=== PATIENT | female | born 1995 | race Caucasian/White ===

== ENCOUNTER 2016-12-15 21:33 | Emergency (ER) | payer BC ==
[2016-12-15 21:38] VITALS: TEMP 97.9
--- NOTE | 2016-12-15 22:22 | EDPHY ---
H & P Stated Complaint: right flank and abd pain, vomiting Source: Patient Exam Limitations: No limitations - Personal History LMP (Females 10-55): 15-21 Days Ago Current Tetanus Diphtheria and Acellular Pertussis (TDAP): Yes - Medical/Surgical History Hx Asthma: No Hx Chronic Respiratory Disease: No Hx Diabetes: No Hx Cardiac Disease: No Hx Renal Disease: No Hx Cirrhosis: No Hx Alcoholism: No Hx HIV/AIDS: No Hx Splenectomy or Spleen Trauma: No Other PMH: ADD, anxiety. polyps colon - Social History Smoking Status: Light smoker Time Seen by Provider: 12/15/16 22:18 HPI/ROS: CHIEF COMPLAINT: Right flank pain, right upper quadrant pain and vomiting HISTORY OF PRESENT ILLNESS: Patient presents to the ED with right flank pain, right upper quadrant pain and vomiting for the past day. The patient does report antecedent dysuria and frequency. The patient does report a history of fairly significant alcohol use. She last drank alcohol in the evening. The patient denies prior history of abdominal surgery. The patient denies history of pancreatitis or other acute medical problems. Patient reports her pain is moderate in nature. It is primarily in her right upper quadrant with radiation to her flank. She denies chest pain or shortness of breath. She denies additional complaints. REVIEW OF SYSTEMS: A comprehensive 10 point review of systems is otherwise negative aside from elements mentioned in the history of present illness. (Alvaro Fernandez) - Physical Exam Exam: General Appearance: Alert, no distress Eyes: Pupils equal and round no pallor or injection ENT, Mouth: Mucous membranes moist Respiratory: There are no retractions, lungs are clear to auscultation Cardiovascular: Regular rate and rhythm Gastrointestinal: Minimal tenderness to palpation in the right upper quadrant, mild right CVA tenderness, no right lower quadrant tenderness appreciated Neurological: A&O, normal motor function, normal sensory exam, normal cranial nerves Skin: Warm and dry, no rashes Musculoskeletal: Neck is supple nontender Extremities: symmetrical, full range of motion (Alvaro Fernandez) Constitutional: Initial Vital Signs Temperature (C) 36.6 C 12/15/16 21:36 Heart Rate 90 12/15/16 21:36 Respiratory Rate 20 12/15/16 21:36 Blood Pressure 128/94 H 12/15/16 21:36 O2 Sat (%) 96 12/15/16 21:36 O2 Delivery Mode Room Air Allergies/Adverse Reactions: No Known Allergies Allergy (Unverified 12/15/16 21:35) Home Medications: Medication Instructions Recorded Cephalexin [Keflex (*)] 500 mg PO Q6H #28 cap 12/15/16 Ondansetron Odt [Zofran Odt 4 mg 4 mg PO Q4 PRN #10 tab 12/15/16 (*)] Medical Decision Making Procedures: Bedside limited abdominal Ultrasound- performed and interpreted by me. Indication: Elevated bilirubin with right-sided flank pain Findings: No gallstones, no pericholecystic fluid, no gallbladder wall thickening, no sonographic Melchor's Impression: No sonographic evidence of cholecystitis or cholelithiasis. ( Gabrielle Stockton) ED Course/Re-evaluation: The patient presents to the ED with right upper quadrant pain, mild flank pain and dysuria for the past several days. The patient does have a history of urinary tract infections in the past. The patient has no right lower quadrant tenderness. Her vital signs are stable and she is in no acute distress. The patient had an IV established. She received a L of normal saline, IV morphine and Zofran. Urinalysis and laboratory studies have been ordered. The patient will be turned over to Dr. Gabrielle Stockton at shift change. (Alvaro Fernandez) Other Provider: 11:20 p.m.- I received sign-out on this patient from Dr. Fernandez. I have evaluated her lab test results in the reveal a mild leukocytosis, and elevated bilirubin. I have reexamined her and she does have right flank tenderness but does not have tenderness in her right upper or lower quadrants at this time. This makes my suspicion for cholecystitis low. However given her initial presenting complaints an elevated bilirubin bedside ultrasound was performed which showed no signs of cholecystitis. I have explained this to her. She will receive a dose of ceftriaxone in be discharged with antibiotics for presumed pyelonephritis. (Gabrielle Stockton) - Data Points Laboratory Results: Laboratory Results 12/15/16 22:29 12/15/16 22:29 12/15/16 12/15/16 12/15/16 22:29 22:29 22:29 WBC 11.41 10^3/uL H 10^3/uL (3.80-9.50) RBC 4.37 10^6/uL 10^6/uL (4.18-5.33) Hgb 14.6 g/dL g/dL (12.6-16.3) Hct 43.2 % % (38.0-47.0) MCV 98.9 fL fL (81.5-99.8) MCH 33.4 pg pg (27.9-34.1) MCHC 33.8 g/dL g/dL (32.4-36.7) RDW 11.8 % % (11.5-15.2) Plt Count 336 10^3/uL 10^3/uL (150-400) MPV 9.2 fL fL (8.7-11.7) Neut % (Auto) 78.6 % H % (39.3-74.2) Lymph % (Auto) 15.0 % % (15.0-45.0) Waller % (Auto) 5.0 % % (4.5-13.0) Eos % (Auto) 0.7 % % (0.6-7.6) Baso % (Auto) 0.4 % % (0.3-1.7) Nucleat RBC Rel Count 0.0 % % (0.0-0.2) Absolute Neuts (auto) 8.98 10^3/uL H 10^3/uL (1.70-6.50) Absolute Lymphs (auto) 1.71 10^3/uL 10^3/uL (1.00-3.00) Absolute Monos (auto) 0.57 10^3/uL 10^3/uL (0.30-0.80) Absolute Eos (auto) 0.08 10^3/uL 10^3/uL (0.03-0.40) Absolute Basos (auto) 0.04 10^3/uL 10^3/uL (0.02-0.10) Absolute Nucleated RBC 0.00 10^3/uL 10^3/uL (0-0.01) Immature Gran % 0.3 % % (0.0-1.1) Immature Gran # 0.03 10^3/uL 10^3/uL (0.00-0.10) Sodium 133 mEq/L L mEq/L (134-144) Potassium 4.1 mEq/L mEq/L (3.5-5.2) Chloride 96 mEq/L L mEq/L (97-110) Carbon Dioxide 24 mEq/l mEq/l (22-31) Anion Gap 13 mEq/L mEq/L (8-16) BUN 12 mg/dL mg/dL (7-23) Creatinine 0.9 mg/dL mg/dL (0.6-1.0) Estimated GFR > 60 Glucose 77 mg/dL mg/dL (70-100) Calcium 10.2 mg/dL mg/dL (8.5-10.4) Total Bilirubin 2.4 mg/dL H mg/dL (0.1-1.4) Conjugated Bilirubin 0.4 mg/dL mg/dL (0.0-0.5) Unconjugated Bilirubin 2.0 mg/dL H mg/dL (0.0-1.1) AST 35 IU/L IU/L (14-46) ALT 38 IU/L IU/L (9-52) Alkaline Phosphatase 87 IU/L IU/L (38-126) Total Protein 8.1 g/dL g/dL (6.3-8.2) Albumin 4.9 g/dL g/dL (3.5-5.0) Lipase 80.0 IU/L IU/L (23-300) Beta HCG, Qual NEGATIVE Urine Color Urine Appearance Urine pH Ur Specific [place] Urine Protein Urine Ketones Urine Blood Urine Nitrate Urine Bilirubin Urine Urobilinogen Ur Leukocyte Esterase Urine RBC Urine WBC Ur Epithelial Cells Urine Bacteria Urine Mucus Urine Yeast Ur Culture Indicated? Urine Glucose 12/15/16 22:23 WBC RBC Hgb Hct MCV MCH MCHC RDW Plt Count MPV Neut % (Auto) Lymph % (Auto) Waller % (Auto) Eos % (Auto) Baso % (Auto) Nucleat RBC Rel Count Absolute Neuts (auto) Absolute Lymphs (auto) Absolute Monos (auto) Absolute Eos (auto) Absolute Basos (auto) Absolute Nucleated RBC Immature Gran % Immature Gran # Sodium Potassium Chloride Carbon Dioxide Anion Gap BUN Creatinine Estimated GFR Glucose Calcium Total Bilirubin Conjugated Bilirubin Unconjugated Bilirubin AST ALT Alkaline Phosphatase Total Protein Albumin Lipase Beta HCG, Qual Urine Color YELLOW Urine Appearance MODERATELY TURBID Urine pH 5.0 (5.0-7.5) Ur Specific [place] 1.014 (1.002-1.030) Urine Protein 2+ H (NEGATIVE) Urine Ketones 1+ H (NEGATIVE) Urine Blood 2+ H (NEGATIVE) Urine Nitrate POSITIVE H (NEGATIVE) Urine Bilirubin NEGATIVE (NEGATIVE) Urine Urobilinogen NEGATIVE EU EU (0.2-1.0) Ur Leukocyte Esterase 2+ H (NEGATIVE) Urine RBC 25-50 /hpf H /hpf (0-3) Urine WBC 50-182 /hpf H /hpf (0-3) Ur Epithelial Cells TRACE /lpf /lpf (NONE-1+) Urine Bacteria 1+ /hpf H /hpf (NONE SEEN) Urine Mucus TRACE /lpf /lpf (NONE-1+) Urine Yeast PRESENT /hpf /hpf (NONE SEEN) Ur Culture Indicated? INDICATED H (NI) Urine Glucose NEGATIVE (NEGATIVE) Medications Given: Discontinued Medications Sodium Chloride (Ns) 1,000 mls @ 0 mls/hr IV ONCE ONE PRN Reason: Wide Open Stop: 12/15/16 22:43 Last Admin: 12/15/16 22:50 Dose: 1,000 mls Ceftriaxone Sodium/Dextrose (Rocephin 1 Gm (Premix)) 50 mls @ 100 mls/hr IV EDNOW ONE PRN Reason: Protocol Stop: 12/15/16 23:21 Last Admin: 12/15/16 23:29 Dose: 50 mls Morphine Sulfate (Morphine) 4 mg IVP EDNOW ONE Stop: 12/15/16 22:44 Last Admin: 12/15/16 22:52 Dose: 4 mg Ondansetron HCl (Zofran) 4 mg IVP EDNOW ONE Stop: 12/15/16 22:44 Last Admin: 12/15/16 22:50 Dose: 4 mg Ondansetron HCl (Zofran Odt 4 Mg Prepack#2) 1 btl TAKEHOME EDNOW ONE Stop: 12/15/16 23:47 Last Admin: 12/15/16 23:48 Dose: 1 btl Departure - Departure Disposition: Home, Routine, Self-Care Clinical Impression: Acute pyelonephritis Condition: Good Instructions: Ondansetron (By mouth), Kidney Infection (ED) Additional Instructions: Please return to the emergency room if your worse in any way. Otherwise you can follow up with your regular doctor in 1-2 days. Make sure to drink plenty of fluids. Referrals: NONE *PRIMARY CARE P,. [Primary Care Provider] - As per Instructions Prescriptions: Cephalexin [Keflex (*)] 500 mg PO Q6H #28 cap Ondansetron Odt [Zofran Odt 4 mg (*)] 4 mg PO Q4 PRN #10 tab PRN Reason: Nausea/Vomiting, Can'T Take Po
[2016-12-15 22:41] LABS: % IMMATURE GRANULYOCYTES 0.3 % (0.0-1.1); ABSOLUTE IMMATURE GRANULOCYTES 0.03 10^3/uL (0.00-0.10); ADD DIFF? NO; ADD MORPH? NO; ADD SCAN? NO; ATYPICAL LYMPHOCYTE FLAG 10 (0-99); FRAGMENT RBC FLAG 0 (0-99); HEMATOCRIT 43.2 % (38.0-47.0); HEMOGLOBIN 14.6 g/dL (12.6-16.3); LEFT SHIFT FLG 0 (0-99); LIPEMIA HEMOLYSIS FLAG 90 (0-99); MEAN CELL HEMOGLOBIN 33.4 pg (27.9-34.1); MEAN CELL HEMOGLOBIN CONCENTR. 33.8 g/dL (32.4-36.7); MEAN CELL VOLUME 98.9 fL (81.5-99.8); MEAN PLATELET VOLUME 9.2 fL (8.7-11.7); PLATELET CLUMPS FLAG 0 (0-99); PLATELET COUNT 336 10^3/uL (150-400); RED BLOOD CELL COUNT 4.37 10^6/uL (4.18-5.33); RED CELL DISTRIBUTION WIDTH 11.8 % (11.5-15.2)
[2016-12-15] MEDS ORDERED: NS 1,000 ML IV ONE (22:42)
[2016-12-15] MEDS ORDERED: ONDANSETRON 4 MG/2 ML VIAL IVP ONE (22:43)
[2016-12-15 22:49] LABS: COLOR YELLOW; LEUKOCYTE ESTERASE,URINE 2+ (NEGATIVE); NITRITE,URINE POSITIVE (NEGATIVE)
[2016-12-15 22:53] LABS: BACTERIA 1+ /hpf (NONE SEEN); MUCUS TRACE /lpf (NONE-1+); RBC,URINE 25-50 /hpf (0-3); WBC,URINE 50-182 /hpf (0-3); YEAST PRESENT /hpf (NONE SEEN)
[2016-12-15 23:05] LABS: ALANINE AMINOTRANSFERASE 38 IU/L (9-52); ALBUMIN 4.9 g/dL (3.5-5.0); ALKALINE PHOSPHATASE 87 IU/L (38-126); ANION GAP 13 mEq/L (8-16); ASPARTATE AMINOTRANSFERASE 35 IU/L (14-46); BILIRUBIN,TOTAL 2.4 mg/dL (0.1-1.4); BILIRUBIN-CONJUGATED 0.4 mg/dL (0.0-0.5); CALCIUM 10.2 mg/dL (8.5-10.4); CARBON DIOXIDE 24 mEq/l (22-31); CHLORIDE 96 mEq/L (97-110); CREATININE 0.9 mg/dL (0.6-1.0); GLOMERULAR FILTRATION RATE > 60; GLUCOSE 77 mg/dL (70-100); POTASSIUM 4.1 mEq/L (3.5-5.2); SODIUM 133 mEq/L (134-144); TOTAL PROTEIN 8.1 g/dL (6.3-8.2)
[2016-12-15] MEDS ORDERED: ONDANSETRON 4MG PREPACK#2 BTL TAKEHOME ONE (23:46)
[2016-12-15 23:58] VITALS: BP 133/79; PULSE 65; RESP 16; O2SAT 97
== END 2016-12-15 23:59 | disposition home or self-care (01) ==
DX: N10 Acute pyelonephritis (principal); F17.200 Nicotine dependence, unspecified, uncomplicated
CPT/HCPCS: 96365; J0696; J2405

== ENCOUNTER 2017-06-15 02:48 | Emergency (ER) | payer BC ==
--- NOTE | 2017-06-15 02:54 | EDPHY ---
H & P Source: Patient, Police - Medical/Surgical History Hx Asthma: No Hx Chronic Respiratory Disease: No Hx Diabetes: No Hx Cardiac Disease: No Hx Renal Disease: No Hx Cirrhosis: No Hx Alcoholism: No Hx HIV/AIDS: No Hx Splenectomy or Spleen Trauma: No Other PMH: ADD, anxiety. polyps colon - Social History Smoking Status: Light smoker HPI/ROS: HPI CHIEF COMPLAINT: M1 hold brought in by [employer]. Suicidal ideation. HISTORY OF PRESENT ILLNESS: This patient 21-year-old female she does have significant past medical history for bipolar disorder she does not take any medication. She presents emergency room highly intoxicated with alcohol. 911 was called and police were dispatched to a private residence with a dispatcher in the background could hear her yelling and going to kill myself. Her friend called 911. Upon arrival to the emergency room the patient is denying suicidal ideation or any plan for this. She denies wanting to hurt herself or anybody else. However she is highly intoxicated with alcohol. It is reported by police that she was screaming in the back on of the 911 call that she is going to kill herself. Multiple times. Friend called 911. Past Medical History: Bipolar disorder Past Surgical History: No recent surgery Social History: Denies drug use. Admits to alcohol she states she had 4 shots this evening. Family History: Noncontributory ROS REVIEW OF SYSTEMS: A comprehensive 10 point review of systems is otherwise negative aside from elements mentioned in the history of present illness. Exam Constitutional intoxicated alcohol, smells of alcohol, slurring speech, triage nursing summary reviewed, vital signs reviewed, awake/alert. Eyes normal conjunctivae and sclera, EOMI, PERRLA. HENT normal inspection, atraumatic, moist mucus membranes, no epistaxis, neck supple/ no meningismus, no raccoon eyes. Respiratory clear to auscultation bilaterally, normal breath sounds, no respiratory distress, no wheezing. Cardiovascular rate normal, regular rhythm, no murmur, no edema, distal pulses normal. Gastrointestinal soft, non-tender, no rebound, no guarding, normal bowel sounds, no distension, no pulsatile mass. Genitourinary no CVA tenderness. Musculoskeletal no midline vertebral tenderness, full range of motion, no calf swelling, no tenderness of extremities, no meningismus, good pulses, neurovascularly intact. Skin pink, warm, & dry, no rash, skin atraumatic. Neurologic awake, alert and oriented x 3, AAOx3, moves all 4 extremities equally, motor intact, sensory intact, CN II-XII intact, normal cerebellar, normal vision, slurring her speech Psychiatric denies to me suicidal ideation or homicidal ideation. Denies depression. Heme/Lymph/Immune no lymphadenopathy. Differential Diagnosis: Includes but is not limited to in a particular order: Bipolar disorder, acute alcohol intoxication, suicidal ideation, mood disorder, depression Medical Decision Making: Plan for this patient blood draw for medical clearance. Check alcohol level. She is on M1 hold by police. She will need evaluation after she is sober. Re-evaluation: 0507: Alcohol serum 433. No acute events overnight. Patient resting and sleeping. Patient signed over at 7:00 a.m. shift change to Dr. Salazar. (Arden Diallo) Constitutional: Initial Vital Signs Temperature (C) 36.5 C 06/15/17 02:52 Heart Rate 106 H 06/15/17 02:52 Respiratory Rate 18 06/15/17 02:52 Blood Pressure 139/92 H 06/15/17 02:52 O2 Sat (%) 94 06/15/17 02:52 O2 Delivery Mode Room Air Allergies/Adverse Reactions: No Known Allergies Allergy (Unverified 12/15/16 21:35) Home Medications: Medication Instructions Recorded NK [No Known Home Meds] 06/15/17 Medical Decision Making Other Provider: I assumed care of this patient from Dr. Salazar at change of shift, 3:00 p.m.. Patient's course was discussed with me by Yesica from [facility]. Patient has appropriately sobered. [facility] has performed there evaluation. Patient is no longer endorsing suicidal ideation. Patient's mother was also contacted. Plan was put in placed to discharge the patient. She no longer meets criteria for 72 hour mental health hold. Hold was lifted by Dr. Andrea. (Gissel Franco) - Data Points Laboratory Results: Laboratory Results 06/15/17 02:54 06/15/17 02:54 Departure - Departure Disposition: Home, Routine, Self-Care Clinical Impression: Bipolar disorder Alcoholic intoxication Qualifiers: Complication of substance-induced condition: uncomplicated Qualified Code(s): F10.920 - Alcohol use, unspecified with intoxication, uncomplicated Condition: Fair Instructions: Alcohol Intoxication (ED), Suicide Prevention for Adults (ED) Additional Instructions: Please follow up as directed with mental health. We strongly encourage you to stop drinking alcohol in excessive quantities. Referrals: Patient,NotPresent [Unknown] - As per Instructions
[2017-06-15 02:59] LABS: % IMMATURE GRANULYOCYTES 0.3 % (0.0-1.1); ABSOLUTE IMMATURE GRANULOCYTES 0.02 10^3/uL (0.00-0.10); ADD DIFF? NO; ADD MORPH? NO; ADD SCAN? NO; ATYPICAL LYMPHOCYTE FLAG 10 (0-99); FRAGMENT RBC FLAG 0 (0-99); HEMATOCRIT 42.3 % (38.0-47.0); HEMOGLOBIN 14.9 g/dL (12.6-16.3); LEFT SHIFT FLG 0 (0-99); LIPEMIA HEMOLYSIS FLAG 90 (0-99); MEAN CELL HEMOGLOBIN 33.7 pg (27.9-34.1); MEAN CELL HEMOGLOBIN CONCENTR. 35.2 g/dL (32.4-36.7); MEAN CELL VOLUME 95.7 fL (81.5-99.8); MEAN PLATELET VOLUME 8.9 fL (8.7-11.7); PLATELET CLUMPS FLAG 0 (0-99); PLATELET COUNT 359 10^3/uL (150-400); RED BLOOD CELL COUNT 4.42 10^6/uL (4.18-5.33); RED CELL DISTRIBUTION WIDTH 11.8 % (11.5-15.2)
[2017-06-15 03:15] LABS: ANION GAP 18 mEq/L (8-16); CALCIUM 9.9 mg/dL (8.5-10.4); CARBON DIOXIDE 23 mEq/l (22-31); CHLORIDE 106 mEq/L (97-110); CREATININE 0.8 mg/dL (0.6-1.0); GLOMERULAR FILTRATION RATE > 60; GLUCOSE 89 mg/dL (70-100); POTASSIUM 4.1 mEq/L (3.5-5.2); SALICYLATE < 1.0 mg/dL (2.0-20.0); SODIUM 147 mEq/L (134-144)
[2017-06-15 03:23] LABS: ETHANOL SERUM 433 mg/dL (0-10)
[2017-06-15 10:47] VITALS: RESP 18
[2017-06-15 18:12] VITALS: BP 117/80; PULSE 75; TEMP 98.2; O2SAT 97
== END 2017-06-15 18:21 | disposition home or self-care (01) ==
DX: F31.9 Bipolar disorder, unspecified (principal); F10.920 Alcohol use, unspecified with intoxication, uncomplicated; F17.200 Nicotine dependence, unspecified, uncomplicated
CPT/HCPCS: 80305; G0480

== ENCOUNTER → 2018-01-03 | Outpatient (CLI) | payer BC | LOC: BMCIMAGING 12:20 | PROVIDERS: ATTEND Family Medicine | DX: M25.572 Pain in left ankle and joints of left foot (principal) ==

== ENCOUNTER 2018-09-02 11:34 | Emergency (ER) | payer BC ==
--- NOTE | 2018-09-02 12:17 | EDPHY ---
H & P Stated Complaint: injured left "pinky" toe Source: Patient Exam Limitations: No limitations - Personal History LMP (Females 10-55): 8-14 Days Ago Current Tetanus/Diphtheria Vaccine: Yes Current Tetanus Diphtheria and Acellular Pertussis (TDAP): Yes - Medical/Surgical History Hx Asthma: No Hx Chronic Respiratory Disease: No Hx Diabetes: No Hx Cardiac Disease: No Hx Renal Disease: No Hx Cirrhosis: No Hx Alcoholism: No Hx HIV/AIDS: No Hx Splenectomy or Spleen Trauma: No Other PMH: ADD, anxiety. polyps colon - Social History Smoking Status: Light smoker Time Seen by Provider: 09/02/18 12:15 HPI/ROS: HPI: This is a 22-year-old female who presents with Chief Complaint: injured left "pinky" toe Location: Left pinky toe Quality: Injury Duration: Signs and Symptoms: No bleeding, no radiation, no numbness, no weakness, no tingling, no incontinence, no decreased range of motion, + swelling, + pain, no fever Timing: Acute Severity: 03/15 Context: Patient is a student at [employer] reports that she accidentally stubbed her left pinky toe on her couch prior to arrival. She reports that it felt constant, moderate, nonradiating pain. She reports that the area is bruise with decreased range of motion. Modifying Factors: She has not applied ice or taking [id number] pain medications Comment: ROS: A comprehensive 10 system review of systems is otherwise negative aside from elements mentioned in the history of present illness. MEDICAL/SURGICAL/SOCIAL HISTORY: Medical history: ADD, anxiety, polyps colon. LMP 1-2 weeks ago. Surgical history: Denies Social history: Light smoker. CONSTITUTIONAL: Well-developed, well-nourished, young adult female. awake and alert, no obvious distress HEENT: Atraumatic and normocephalic. NECK: supple EXTREMITIES: 2/2 pulses, strength 5/5, left little toe shows tenderness to palpation at the MCP joint with mild bruising; DIP/PIP/MCP flexion/extension intact with good light touch sensation. no deformities, no clubbing, no cyanosis or edema. NEUROLOGICAL: no focal neuro deficits. GCS 15. Light touch sensation intact. SKIN: Warm and dry, no erythema. no rash. Good capillary refill. (Jagruti,Terra) Constitutional: Initial Vital Signs Temperature (C) 36.8 C 09/02/18 11:56 Heart Rate 66 09/02/18 11:56 Respiratory Rate 16 09/02/18 11:56 Blood Pressure 114/80 09/02/18 11:56 O2 Sat (%) 97 09/02/18 11:56 O2 Delivery Mode Room Air Allergies/Adverse Reactions: No Known Allergies Allergy (Unverified 12/15/16 21:35) Home Medications: Medication Instructions Recorded Lexapro 09/02/18 Topamax 09/02/18 traZODone 09/02/18 Medical Decision Making Procedures: Procedure: Splint placement. Nestor tape and postop shoe was applied. After application of the splint I returned and re-examined the patient. The splint was adequately immobilizing the joint and distal to the splint the patient's circulation and sensation was intact. (Kathya Chand) ED Course/Re-evaluation: Left toe x-ray ordered and my read via PAC shows displaced 5th/little toe fracture Nestor tape and postop shoe applied Podiatry follow-up as needed No signs of neurovascular compromise/tenting of skin/compartment syndrome/ extremities and joints examined above and below area of concern and are neurovascularly intact. This patient was seen under the supervision of my secondary supervising physician. I evaluated care for this patient independently. Discussed this patient with Dr. Arvizu who did not see the patient. (Kathya Chand) The patient was evaluated and managed by the physician bilingual administrative assistant. I have reviewed this chart and I agree with the findings and plan of care as documented , as indicated by my signature. I am the secondary supervising physician. ( Autumn Arvizu) Differential Diagnosis: Differential diagnosis includes but is not limited to contusion, fracture, sprain, nerve injury, tendon injury. (Kathya Chand) Departure - Departure Disposition: Home, Routine, Self-Care Clinical Impression: Toe fracture, left Condition: Good Instructions: Toe Fracture (ED), Post Surgical Shoe (ED) Additional Instructions: Nestor-taped and wear the postoperative shoe until pain resolved or seen by Podiatry. Take Tylenol 650 mg every 4 hours and/or Ibuprofen 600 mg every 8 hours with food as needed for pain. Apply ice for 30 minutes at a time; 2-3 times per day for the next 1-2 days. Follow up with Podiatry in 7-10 days if symptoms persist at which time they will evaluate and recommend with you if conservative management versus surgery is indicated. Referrals: Irwin Layne DPM [Doctor of Podiatric Medicine] - As per Instructions
[2018-09-02 13:25] VITALS: BP 118/82
== END 2018-09-02 13:25 | disposition home or self-care (01) ==
DX: S92.512A Displaced fracture of proximal phalanx of left lesser toe(s), initial encounter for closed fracture (principal); W22.8XXA Striking against or struck by other objects, initial encounter; Y92.9 Unspecified place or not applicable; Y93.9 Activity, unspecified; Y99.9 Unspecified external cause status
CPT/HCPCS: L4386